=== PATIENT | female | born 1940 | race Caucasian/White ===

== ENCOUNTER → 2016-05-19 | Outpatient (CLI) | payer MEDICARE, OTHER ==
[~2016-05-19] MED LIST: ALBUTEROL0.83 MG/ML IH; AMERGE 2.5MG T2.5 MG PO; BETOPTIC 0.5% 55 ML OP; BLOOD PRESSURE MED; CALCIUM & MAGNE1 CAP PO; COMPOUNDED HORMONES; DIFLUCAN 100MG100 MG PO; DUO-KAPS1 CAP PO; EMERGE PO; KERLONE10 MG PO; LEVAQUIN 750MG750 M1 PO; MUCINEX1200 MG PO; PREDNISONE20 MG PO; PRINIVIL5 MG PO; PROAIR HFA0.09 MG/AC IH; STADOL2 MG/ML IJ; TESSALON P100 MG/CAP PO; VITAMIN D1000 IU PO; XANAX .25M0.25 MG/TA PO; ZITHROMAX 250M250 MG PO; ZYRTEC 10MG10 MG PO
== END ==
LOC: COL.RAD 10:30
DX: N13.39 Other hydronephrosis (principal); N28.1 Cyst of kidney, acquired; R10.12 Left upper quadrant pain; Z87.448 Personal history of other diseases of urinary system

== ENCOUNTER → 2016-05-21 | Outpatient (CLI) | payer MEDICARE, OTHER | LOC: COL.RAD 09:46 | DX: R10.12 Left upper quadrant pain (principal); R93.5 Abnormal findings on diagnostic imaging of other abdominal regions, including retroperitoneum; R93.41 Abnormal radiologic findings on diagnostic imaging of renal pelvis, ureter, or bladder; Z87.448 Personal history of other diseases of urinary system | CPT/HCPCS: A9562 ==

== ENCOUNTER 2016-05-30 17:02 | Emergency (ER) | payer MEDICARE, OTHER ==
[2006-09-16 21:55] VITALS: BP 111/61
[~2016-05-30] VITALS: Ht 154.9 cm; Wt 51.8 kg
[2016-05-30 17:04] VITALS: TEMP 98.6
[2016-05-30 17:58] LABS: BASO # 0.1 (0.0-0.2); BASO % 0.6 % (0.0-2.0); EOS # 0.1 (0.0-0.7); EOS % 1.1 % (0-4.0); GRAN % 79.5 % (42.2-75.2); HEMATOCRIT 34.5 % (37.0-47.0); HEMOGLOBIN 12.1 g/dl (12.5-16.0); LYMPH # 1.5 (1.2-3.4); LYMPH % 12.8 % (20.0-51.0); MEAN CELL VOLUME 91 fl (80.0-100.0); MEAN CORPUSCULAR HEMOGLOBIN 32 pg (27.0-31.0); MEAN CORPUSCULAR HGB CONC 35 g/dl (33.0-37.0); MEAN PLATELET VOLUME 9.5 fl (7.4-10.4); MONO # 0.6 (0.1-0.6); MONO % 5.6 % (1.7-9.3); PLATELET COUNT 210 K/mm3 (130-400); REDCELL DISTRIBUTION WIDTH-CV 12.4 % (11.5-14.5); WHITE BLOOD COUNT 11.4 K/mm3 (4.8-10.8)
[2016-05-30 18:00] LABS: PH 6 (5-8); SQUAMOUS EPITHELIAL None Seen /hpf; URINE APPEARANCE Clear; URINE BACTERIA None Seen /hpf; URINE BILIRUBIN Negative (NEGATIVE); URINE BLOOD 1+ (NEGATIVE); URINE COLOR Yellow; URINE GLUCOSE Negative (NEGATIVE); URINE KETONE Negative (NEGATIVE); URINE RBC 0-2 /hpf; URINE UROBILINOGEN Negative (NEGATIVE); URINE WBC 0-2 /hpf
[2016-05-30 18:05] LABS: ADJUSTED CALCIUM 9.6 mg/dL (8.4-10.2); ALBUMIN 4.4 gm/dL (3.5-5.0); BILIRUBIN,TOTAL 0.8 mg/dL (0.0-1.0); CALCIUM 9.9 mg/dL (8.4-10.2); CREATININE, serum 0.85 mg/dL (0.52-1.25); POTASSIUM 3.7 mmol/L (3.4-5.0); TOTAL PROTEIN 7.5 gm/dL (6.4-8.2)
[2016-05-30 19:32] VITALS: BP 122/80; PULSE 78
== END 2016-05-30 19:49 | disposition home or self-care (01) ==
LOC: COL.ER 17:02
PROVIDERS: Emergency Medicine
DX: N23 Unspecified renal colic (principal); I10 Essential (primary) hypertension; Z87.442 Personal history of urinary calculi
CPT/HCPCS: J1885; J2765; J3010; J7030; Q9967

== ENCOUNTER → 2016-11-01 | Outpatient (CLI) | payer MEDICARE, OTHER | LOC: MHCPAIN 08:51 | DX: G89.29 Other chronic pain (principal); M47.817 Spondylosis without myelopathy or radiculopathy, lumbosacral region; M53.3 Sacrococcygeal disorders, not elsewhere classified; M70.60 Trochanteric bursitis, unspecified hip; G57.00 Lesion of sciatic nerve, unspecified lower limb | CPT/HCPCS: G0463 ==

== ENCOUNTER → 2017-02-08 | Outpatient (CLI) | payer MEDICARE, OTHER | LOC: MHCPAIN 08:48 | DX: G89.29 Other chronic pain (principal); M47.817 Spondylosis without myelopathy or radiculopathy, lumbosacral region; M70.60 Trochanteric bursitis, unspecified hip; G57.00 Lesion of sciatic nerve, unspecified lower limb | CPT/HCPCS: G0463 ==

== ENCOUNTER → 2017-02-09 | Outpatient (CLI) | payer MEDICARE, OTHER | LOC: MC.RAD 13:12 | DX: Z12.31 Encounter for screening mammogram for malignant neoplasm of breast (principal) ==

== ENCOUNTER → 2018-02-10 | Outpatient (CLI) | payer MEDICARE, OTHER | LOC: MC.RAD 13:14 | DX: Z12.31 Encounter for screening mammogram for malignant neoplasm of breast (principal) ==

== ENCOUNTER → 2019-02-12 | Outpatient (CLI) | payer MEDICARE, OTHER | LOC: MC.RAD 13:02 | DX: Z12.31 Encounter for screening mammogram for malignant neoplasm of breast (principal) ==

== ENCOUNTER 2019-03-22 10:47 | Emergency (ER) | payer MEDICARE, OTHER ==
[2006-09-16 21:55] VITALS: BP 111/61
[~2019-03-22] VITALS: Ht 165.1 cm; Wt 49.1 kg
[2019-03-22 10:58] VITALS: BP 197/96; PULSE 72; TEMP 97.8
== END 2019-03-22 11:25 | disposition home or self-care (01) ==
LOC: COL.ER 10:47
DX: S01.01XA Laceration without foreign body of scalp, initial encounter (principal); W22.8XXA Striking against or struck by other objects, initial encounter; Y92.009 Unspecified place in unspecified non-institutional (private) residence as the place of occurrence of the external cause

== ENCOUNTER → 2019-05-21 | Outpatient (CLI) | payer MEDICARE, OTHER | LOC: COL.RAD 09:48 | DX: N30.21 Other chronic cystitis with hematuria (principal) ==

== ENCOUNTER 2019-11-20 01:22 | Inpatient (IN) | payer MEDICARE, OTHER ==
[~2019-11-20] VITALS: Ht 154.9 cm; Wt 53.8 kg
[2019-11-20] VITALS (14 sets, daily range): BP systolic 107–150; BP diastolic 39–76; PULSE 67–100; TEMP 97.7–98.7
[~2019-11-20 01:22] MED LIST changes: -VITAMIN D1000 IU PO; +VITAMIN D31000 I1 PO
[2019-11-20 01:53] LABS: BASO % 0.3 % (0.0-2.0); GRAN # 10.4 (1.4-6.5); GRAN % 88.2 % (42.2-75.2); HEMATOCRIT 34.6 % (37.0-47.0); HEMOGLOBIN 11.8 g/dl (12.5-16.0); LYMPH # 0.9 (1.2-3.4); LYMPH % 7.5 % (20.0-51.0); MEAN CELL VOLUME 94 fl (80.0-100.0); MEAN CORPUSCULAR HEMOGLOBIN 32 pg (27.0-31.0); MEAN CORPUSCULAR HGB CONC 34 g/dl (33.0-37.0); MEAN PLATELET VOLUME 9.1 fl (7.4-10.4); MONO # 0.4 (0.1-0.6); MONO % 3.7 % (1.7-9.3); PLATELET COUNT 186 K/mm3 (130-400); RED BLOOD COUNT 3.68 M/mm3 (4.10-5.30); REDCELL DISTRIBUTION WIDTH-CV 12.1 % (11.5-14.5)
[2019-11-20 02:04] LABS: ALANINE AMINOTRANSFERASE 24 U/L (4-34); ALBUMIN 4.7 gm/dL (3.5-5.0); ALKALINE PHOSPHATASE 60 U/L (50-136); ANION GAP 10 mmol/L (7-16); AST,SGOT 33 U/L (15-37); BILIRUBIN,TOTAL 1.3 mg/dL (0.0-1.0); BLOOD UREA NITROGEN 12 mg/dL (7-17); CALCIUM 9.6 mg/dL (8.4-10.2); CARBON DIOXIDE 24 mmol/L (22-30); CHLORIDE 94 mmol/L (98-107); CREATININE, serum 0.72 (0.52-1.25); GLUCOSE 126 mg/dL (74-106); LIPASE 114 U/L (23-300); POTASSIUM 4.2 mmol/L (3.4-5.0); SODIUM 128 mmol/L (137-145); TOTAL PROTEIN 7.7 gm/dL (6.4-8.2)
[2019-11-20 02:06] LABS: C-REACTIVE PROTEIN 0.5 mg/dL (0.0-0.9)
[2019-11-20 02:16] LABS: COLLECTION METHOD CLEAN CATCH
[2019-11-20 02:16] LABS: TROPONIN-I < 0.012 ng/mL (0.000-0.035)
[2019-11-20 02:43] LABS: AMORPHOUS CRYSTAL Present /uL; MUCOUS Present /lpf; PH 7 (5-8); SQUAMOUS EPITHELIAL 0-2 /hpf; URINE APPEARANCE Cloudy; URINE BACTERIA None Seen /hpf; URINE BILIRUBIN Negative (NEGATIVE); URINE BLOOD 1+ (NEGATIVE); URINE COLOR Yellow; URINE GLUCOSE Negative (NEGATIVE); URINE KETONE Trace (NEGATIVE); URINE LEUKOCYTE ESTERASE 1+ (NEGATIVE); URINE NITRATE Negative (NEGATIVE); URINE PROTEIN(semi-quant) Negative (NEGATIVE); URINE UROBILINOGEN Negative (NEGATIVE)
--- NOTE | 2019-11-20 04:00 | NUR ---
PT ARRIVES FROM ED PER STRETCHER. IS ALERT AND ORIENTED X4, AMBULATES FROM CART TO BED WITHOUT PROBLEM.
[2019-11-20] MEDS ORDERED: ZYRTEC 10MG10 MG PO (04:26)
--- NOTE | 2019-11-20 05:15 | NUR ---
PT REPORTS PAIN 5/10 ON SCALE, DOES NOT WANT ANYTHING AT THIS TIME FOR PAIN. IS ALERT AND ORIENTED X4. HAS IVF INFUSING TO RIGHT AC WITHOUT PROBLEM. IS NPO. DR DE LA O NOTIFIED OF PREVIOUS PAIN MED ORDERS, NEW ORDERS RECEIVED.
--- NOTE | 2019-11-20 09:50 | NUR ---
Patient alert and oriented, answers questions appropriately. See assessment. Abdomen soft, tender, non distended. Bowel sounds active x4 quads. +Flatus. C/o RLQ and left flank pain. No c/o urinary burning, frequency or hesitancy. No other c/o at this time.
--- NOTE | 2019-11-20 11:22 | NUR ---
Dr Carlson here to see patient.
--- NOTE | 2019-11-20 11:29 | NUR ---
Emergency Operator met with patient to discuss discharge planning. Patient lives alone in [place] and sees Dr. Jarquin for primary care. Patient obtains medications from [facility] with no difficulties. Patient does not use any DME and reports independence with ADLS. Patient states she is recently from her , Song. Patient does not want Song to be contacted and did not give SW Song's phone number. Patient states her next of kin would be her daughter, Susu (ph#[phone]) who lives in [facility]. Patient states another emergency contact for her would be her friend from [facility], Jorge Mo (ph#[phone]). Patient states she does have Advance Directives that name Song but that she is working with her civil rights attorney to get this changed as soon as possible. Patient plans to return home at discharge. SW will continue to follow for any discharge needs.
[2019-11-20 12:00] LABS: BASO % 0.3 % (0.0-2.0); EOS % 0.2 % (0-4.0); GRAN # 8.2 (1.4-6.5); GRAN % 85.2 % (42.2-75.2); HEMOGLOBIN 10.4 g/dl (12.5-16.0); LYMPH # 0.9 (1.2-3.4); LYMPH % 8.8 % (20.0-51.0); MEAN CELL VOLUME 95 fl (80.0-100.0); MEAN CORPUSCULAR HEMOGLOBIN 32 pg (27.0-31.0); MEAN CORPUSCULAR HGB CONC 34 g/dl (33.0-37.0); MEAN PLATELET VOLUME 9.3 fl (7.4-10.4); MONO # 0.5 (0.1-0.6); MONO % 5.2 % (1.7-9.3); PLATELET COUNT 180 K/mm3 (130-400); RED BLOOD COUNT 3.23 M/mm3 (4.10-5.30); REDCELL DISTRIBUTION WIDTH-CV 12.4 % (11.5-14.5)
[2019-11-20 12:06] LABS: HEMATOCRIT 30.7 % (37.0-47.0)
--- NOTE | 2019-11-20 12:10 | NUR ---
Patient to surgery with surgical staff at this time.
[2019-11-20 12:15] LABS: ALBUMIN 3.9 gm/dL (3.5-5.0); BILIRUBIN,TOTAL 1.4 mg/dL (0.0-1.0); CALCIUM 8.8 mg/dL (8.4-10.2); CREATININE, serum 0.62 (0.52-1.25); TOTAL PROTEIN 6.4 gm/dL (6.4-8.2)
[2019-11-20] MEDS ORDERED: MOTRIN 600600 MG/TAB PO (13:28)
[2019-11-20] MEDS ORDERED: NORCO 325 MG-51 TAB PO (13:28)
--- NOTE | 2019-11-20 14:35 | NUR ---
Patient returns from lap appy. Assessment unchanged except for lap sites to abdomen with band aids CDI. Bowel sounds hypoactive, no flatus. C/o pain to throat 08/23. No other c/o at this time.
--- NOTE | 2019-11-20 20:00 | NUR ---
Received report from TREVER Fields. Pt sleeping during shift report. Pt ambulated to BR without issue. C/O pain/tenderness to lap site to abdomen, rate 4-5/10. PRN pain meds adminsitered as requested by pt. Denies nausea. Water, apple juice and crackers provided to pt as requested. IV to LFA intact with fluids infusing, dressing CDI. Needs met at this time. Call light within reach.
[2019-11-21 04:01] VITALS: BP 116/55; PULSE 68; TEMP 98.6
--- NOTE | 2019-11-21 05:32 | NUR ---
Pt uneventful during this shift. Made needs known. Ambulated down the hallway independently. Needs met. call light within reach.
[2019-11-21 06:36] LABS: BASO % 0.2 % (0.0-2.0); EOS % 0.5 % (0-4.0); GRAN # 5.2 (1.4-6.5); GRAN % 78.8 % (42.2-75.2); LYMPH # 0.9 (1.2-3.4); LYMPH % 13.7 % (20.0-51.0); MEAN CELL VOLUME 95 fl (80.0-100.0); MEAN CORPUSCULAR HGB CONC 34 g/dl (33.0-37.0); MEAN PLATELET VOLUME 9.3 fl (7.4-10.4); MONO # 0.4 (0.1-0.6); MONO % 6.5 % (1.7-9.3); PLATELET COUNT 147 K/mm3 (130-400); RED BLOOD COUNT 2.77 M/mm3 (4.10-5.30); REDCELL DISTRIBUTION WIDTH-CV 12.5 % (11.5-14.5)
[2019-11-21 06:44] LABS: HEMATOCRIT 26.4 % (37.0-47.0); MEAN CORPUSCULAR HEMOGLOBIN 32 pg (27.0-31.0)
[2019-11-21 06:45] LABS: ALBUMIN 3.2 gm/dL (3.5-5.0); CALCIUM 8.3 mg/dL (8.4-10.2); CREATININE, serum 0.63 (0.52-1.25); PHOSPHOROUS 2.6 mg/dL (2.5-4.5); POTASSIUM 3.5 mmol/L (3.4-5.0)
--- NOTE | 2019-11-21 07:10 | NUR ---
REPORT GIVEN TO TREVER HERNANDEZ.
[2019-11-21 08:34] VITALS: BP 112/63; PULSE 67; TEMP 97.6
[2019-11-21 11:16] VITALS: BP 127/59; PULSE 72; TEMP 98.7
--- NOTE | 2019-11-21 11:24 | NUR ---
First visit from the freight flow sales leader. No needs right now.
--- NOTE | 2019-11-21 11:36 | NUR ---
Patient alert and oriented, answers questions appropriately. See assessment. Abdomen soft, tender, non distended. No flatus. Bowel sounds hypoactive. Lap sites with edges well approximated, no redness or drainage noted. C/o nausea/vomiting. Zofran given. C/o pain to LLQ and left flank. No other c/o at this time.
--- NOTE | 2019-11-21 12:45 | NUR ---
Dr Carlson here to see patient.
[2019-11-21 16:08] VITALS: BP 123/52; PULSE 77; TEMP 98.6
--- NOTE | 2019-11-21 17:42 | NUR ---
Dr Carlson notified that xrays resulted.
[2019-11-21 19:32] VITALS: BP 130/54; PULSE 80; TEMP 97.8
--- NOTE | 2019-11-21 20:00 | NUR ---
Report received, assumed care for retail shift leader. Assessment complete. VS stable. A&Ox3-drowsy. Denies shortness of breath/nausea. States she has pain to left side/flank-rating pain 05/25-received dilaudid at 1820. States pain is much better since receiving dilaudid. Lap sites x3 edges well approximated-no s/s of infection noted. NPO with ice chips. IV to right AC with NS@75mls/hr. Denies needs. Call light in reach. WIll monitor.
--- NOTE | 2019-11-21 21:14 | NUR ---
C/O nausea. Did have approx 25mls of green emesis. Zofran 4mg given per dr order.
[2019-11-22 00:53] VITALS: BP 124/65; PULSE 87; TEMP 97.9
--- NOTE | 2019-11-22 03:00 | NUR ---
Resting in bed eyes closed. 0300 dose of antibiotics hung. Denies need for pain intervention. Denies nausea-states she is just tired. Currently tolerating sips/chips without emesis. Denies needs. Call light in reach. Will monitor.
--- NOTE | 2019-11-22 04:03 | NUR ---
Called c/o pain and emesis. Vomitted 25mls clear fluid. Zofran given per dr order. Rating pain 7/10 on pain scale described as constant throbbing that started when got up to bathroom. Dilaudid given per dr order. Will monitor.
[2019-11-22 05:10] VITALS: BP 132/50; PULSE 73; TEMP 97.8
[2019-11-22 07:06] LABS: BASO % 0.3 % (0.0-2.0); EOS % 0.1 % (0-4.0); GRAN # 5.7 (1.4-6.5); GRAN % 84.5 % (42.2-75.2); LYMPH # 0.7 (1.2-3.4); LYMPH % 10.1 % (20.0-51.0); MEAN CELL VOLUME 93 fl (80.0-100.0); MEAN CORPUSCULAR HGB CONC 35 g/dl (33.0-37.0); MEAN PLATELET VOLUME 9.3 fl (7.4-10.4); MONO # 0.3 (0.1-0.6); MONO % 4.7 % (1.7-9.3); PLATELET COUNT 142 K/mm3 (130-400); RED BLOOD COUNT 2.86 M/mm3 (4.10-5.30)
[2019-11-22 07:21] LABS: HEMATOCRIT 26.6 % (37.0-47.0); HEMOGLOBIN 9.3 g/dl (12.5-16.0); MEAN CORPUSCULAR HEMOGLOBIN 33 pg (27.0-31.0)
[2019-11-22 07:23] LABS: ALBUMIN 3.3 gm/dL (3.5-5.0); BILIRUBIN,TOTAL 0.7 mg/dL (0.0-1.0); CREATININE, serum 0.56 (0.52-1.25); POTASSIUM 3.6 mmol/L (3.4-5.0); TOTAL PROTEIN 5.8 gm/dL (6.4-8.2)
[2019-11-22 08:46] VITALS: BP 127/64; PULSE 70; TEMP 98.1
--- NOTE | 2019-11-22 10:55 | NUR ---
Patient alert and oriented, answers questions appropriately. See assessment. Abdomen soft, non tender, non distended. Bowel sounds active x4 quads. +Flatus. Lap sites to abdomen with edges well approximated, no redness or drainage noted. Post op exercises reviewed. No other c/o at this time.
--- NOTE | 2019-11-22 12:50 | NUR ---
Envelope Sealer Operator was notified by RN, Diamond that patient is feeling anxious about returning home since she lives home alone. SW met with patient who is interested in Home Health Services. SW provided Medicare.gov list of HH agencies that serve [place]. Patient states she doesn't think she will need HH for too long, but that she thinks she would benefit from it discharging home. Patient would like a referral sent to [facility]. WESLEY also provided contact information for [facility] and [facility], two private duty providers in [place]. WESLEY faxed referral to Paty at [facility]. Paty contacted [facility] and advised they can accept referral. WESLEY will continue to follow.
[2019-11-22 13:05] VITALS: BP 152/64; PULSE 118; TEMP 97.7
[2019-11-22 14:31] LABS: CALCIUM 8.4 mg/dL (8.4-10.2); CREATININE, serum 0.61 (0.52-1.25); POTASSIUM 3.5 mmol/L (3.4-5.0)
[2019-11-22 16:11] VITALS: BP 160/63; PULSE 56; TEMP 98.1
--- NOTE | 2019-11-22 19:30 | NUR ---
INDEPENDENT IN ROOM AND HALLWAY. DENIES NEEDS. SL TO LEFT ARM WITHOUT REDNESS OR SWELLING. IS ALERT AND ORIENTED X4. DRINKING GATORADE DUE TO LOW SODIUM.
[2019-11-22 20:24] VITALS: BP 138/68; PULSE 60; TEMP 98.1
[2019-11-23 00:01] VITALS: BP 138/65; PULSE 73; TEMP 98
[2019-11-23 04:05] VITALS: BP 128/59; PULSE 66; TEMP 98.7
--- NOTE | 2019-11-23 04:07 | NUR ---
IV FLAGYL COMPLETE. IV SITE TO LEFT FOREARM FLUSHED EASILY. OFFERS NO CONCERNS AT THIS TIME.
[2019-11-23 06:40] LABS: CALCIUM 8.3 mg/dL (8.4-10.2); CREATININE, serum 0.89 (0.52-1.25); POTASSIUM 3.1 mmol/L (3.4-5.0)
--- NOTE | 2019-11-23 07:50 | NUR ---
Patient ambulating in halls independently, steady gait. Ambulated >200ft.
--- NOTE | 2019-11-23 08:00 | NUR ---
Patient in bed resting. Alert and oriented x 3. Assessment complete. Denies pain at this time. Lap sites x 3 with edges well approximated. Independent in room. Denies further needs at this time.
[2019-11-23 08:34] VITALS: BP 141/77; PULSE 67; TEMP 98.1
--- NOTE | 2019-11-23 09:40 | NUR ---
Roll Contour Grinder spoke with RN, Rylie who advised patient is feeling much better today and has been independent in her room. Rylie reports patient now feels she does not need Home Health services. SW followed up with patient who states she is feeling a lot better and feels much more comfortable going home now. Patient states she does not need HH and has been walking independently in the halls. Patient states she has many friends who can check in on her if need be. SW read IM form aloud to patient who verbalized understanding and gave SW permission to sign on her behalf. SW placed form in chart and provided copy to patient. SW contacted Paty at [facility] and provided update. Patient to discharge home later this afternoon. No additional needs at this time.
[2019-11-23 11:49] VITALS: BP 172/65; PULSE 62; TEMP 98.1
--- NOTE | 2019-11-23 13:48 | NUR ---
Contacted Dr. Carlson, patient states she is ready to discharge. feeling well after eating lunch and ambulating in halls.
--- NOTE | 2019-11-23 15:25 | NUR ---
Discharge education provided to patient. Educated on new medications and medication safety. Educated on signs and symptoms of infection and when to call provider. All questions answered. Denies further needs at this time. INT to left forarm discontinued, catheter tip intact.Patient to call when ride is here for her.
--- NOTE | 2019-11-23 15:45 | NUR ---
Patient ambulated out with surgical staff.
== END 2019-11-23 15:45 | disposition home or self-care (01) | DRG 342 ==
LOC: COL.ER 01:22 → SURG 03:11
PROVIDERS: Emergency Medicine; Physician Assistant; ADMIT Surgery
PROC: 0DTJ4ZZ Resection of Appendix, Percutaneous Endoscopic Approach (ICD-10-PCS; principal; 2019-11-20 14:00)
DX: K35.80 Unspecified acute appendicitis (principal); E22.2 Syndrome of inappropriate secretion of antidiuretic hormone; E87.6 Hypokalemia; I10 Essential (primary) hypertension; Z66 Do not resuscitate
CPT/HCPCS: 99223; 99231-AI; C9113; J1170; J1940; J1956; J2405; J2550; J2704; J3010; J7030; J7120

== ENCOUNTER → 2020-02-14 | Outpatient (CLI) | payer MEDICARE, OTHER ==
[~2020-02-14] MED LIST changes: +MOTRIN 600600 MG/TAB PO; +NORCO 325 MG-51 TAB PO
== END ==
LOC: MC.RAD 09:15
DX: Z12.31 Encounter for screening mammogram for malignant neoplasm of breast (principal)

== ENCOUNTER → 2020-03-27 | Outpatient (CLI) | payer MEDICARE, OTHER | LOC: COL.RAD 07:58 | DX: K57.30 Diverticulosis of large intestine without perforation or abscess without bleeding (principal); Z93.8 Other artificial opening status; Z90.89 Acquired absence of other organs ==

== ENCOUNTER → 2021-02-16 | Outpatient (CLI) | payer MEDICARE, OTHER | LOC: MC.RAD 09:22 | DX: Z12.31 Encounter for screening mammogram for malignant neoplasm of breast (principal) ==

== ENCOUNTER → 2021-03-06 | Outpatient (CLI) | payer MEDICARE, OTHER | LOC: COL.LAB 12:47 | DX: J30.1 Allergic rhinitis due to pollen (principal) ==